=== PATIENT | male | born 1940 | race Caucasian/White ===

== ENCOUNTER → 2017-03-30 | Outpatient (CLI) | payer MEDICARE ==
[~2017-03-30] MED LIST: AEC81 PO; AMLO10TA2 PO; ATEN50TA PO; ATOR10TA69 PO; ISOS30TA6 PO; LEVO25TA54 PO; METF10004 PO; NITR0.4T SL; REGADENOSON 0.4 MG/5 ML PF SYG IVP SCH
== END | disposition home or self-care (01) ==
LOC: SHCH 08:34
PROVIDERS: ATTEND Internal Medicine Cardiovascular Disease
DX: I20.0 Unstable angina (principal); R06.00 Dyspnea, unspecified; R14.1 Gas pain
CPT/HCPCS: 78452; 93017; 96374; A9500 ×2; J2785

== ENCOUNTER → 2024-02-11 | Outpatient (CLI) | payer OTHER ==
[~2024-02-11] MED LIST changes: +AMLO-258 PO; -AMLO10TA2 PO; -ISOS30TA6 PO; +ISOS30TA92 PO; +METF-446 PO; -METF10004 PO; -REGADENOSON 0.4 MG/5 ML PF SYG IVP SCH
== END | disposition home or self-care (01) ==
LOC: RAH 08:13
PROVIDERS: ATTEND Internal Medicine
DX: I71.43 Infrarenal abdominal aortic aneurysm, without rupture (principal)
CPT/HCPCS: 76775